=== PATIENT | male | born 1970 | race Caucasian/White ===

== ENCOUNTER 2016-09-18 18:16 | Emergency (ER) | payer OTHER ==
[~2016-09-18] VITALS: Ht 182.9 cm; Wt 99.8 kg
[2016-09-18 18:48] LABS: Basophils # (auto) 0 uL; Basophils % (auto) 0.2 % (0.0-2.0); CONDITION Y; Eosinophils # (auto) 0.2 uL; Eosinophils % (auto) 2.4 % (0.0-7.0); Hematocrit 42.5 % (41.0-53.0); Hemoglobin 14.6 g/dL (13.5-17.5); Lymphocytes # (auto) 3.8 uL; Lymphocytes % (auto) 38.8 % (10.0-50.0); Mean Corpuscular Hemoglobin 31.1 pg (28.0-32.0); Mean Corpuscular Hgb Conc. 34.5 g/dL (32.0-36.0); Mean Corpuscular Volume 90.4 fL (80.0-100.0); Mean Platelet Volume 7.6 fL (7.4-10.4); Monocytes # (auto) 0.7 uL; Monocytes % (auto) 7.2 % (0.0-12.0); Neutrophils % (auto) 51.4 % (37.0-80.0); Platelet Count (auto) 262 10^3/uL (140-450); Red Cell Distribution Width 13.4 % (11.6-16.0); White Blood Cell 9.7 10^3/uL (4.4-10.8)
[2016-09-18] MEDS ORDERED: SODIUM CHLORIDE 0.9% 1,000 ML IV ONE ×2 (19:00→19:15)
[2016-09-18 19:37] LABS: Chloride 110 mmol/L (98-107); Potassium 3.7 mmol/L (3.5-5.1); Sodium 143 mmol/L (136-145)
[2016-09-18 19:43] LABS: Albumin 3.7 g/dL (3.4-5.0); Anion Gap 9 (5-15); Aspartate Aminotransferase 40 U/L (15-37); BUN/Creatinine Ratio 13.7; Blood Urea Nitrogen 20 mg/dL (7-18); Calcium 8.2 mg/dL (8.5-10.1); Carbon Dioxide 24 mmol/L (21-32); GFR African American 67 mL/min; GFR Non-African American 55 mL/min; Glucose 103 mg/dL (74-106)
[2016-09-18 19:46] LABS: INR 1.05 (0.9-1.15); Prothrombin Time 11.5 sec (9.37-12.3)
[2016-09-18 19:47] LABS: Alkaline Phosphatase 65 U/L (45-117); Bilirubin, Total 0.5 mg/dL (0.2-1.0)
[2016-09-18 20:28] LABS: B-Type Natriuretic Peptide 53.3 pg/mL (0-100)
[2016-09-18 20:33] LABS: Temperature: 22.9 C (20.0-25.0)
[2016-09-18 22:33] LABS: Urine Bilirubin Negative (Negative); Urine Blood Negative /uL (Negative); Urine Color Yellow (Yellow); Urine Glucose Normal (Normal); Urine Ketone TRACE (Negative); Urine Mucus FEW (None Seen); Urine Nitrite Negative (Negative); Urine RBC <1 /hpf (0 - 3); Urine Urobilinogen Normal (Negative); Urine pH 6.5 (5.0-8.0)
[2016-09-18 23:15] VITALS: BP 131/70
== END 2016-09-18 23:38 | disposition home or self-care (01) ==
LOC: EDBD 18:16 → ER 18:19
DX: R00.1 Bradycardia, unspecified (principal); E86.0 Dehydration; I48.91 Unspecified atrial fibrillation; F12.10 Cannabis abuse, uncomplicated
CPT/HCPCS: 36415; 71010; 80053; 81001; 83880; 84484; 85025; 85379; 85610; 85730; 93005; 96360; 96361; 99285; J7030